=== PATIENT | male | born 1940 | race Caucasian/White ===

== ENCOUNTER 2018-10-19 10:57 | Day surgery (SDC) | payer MEDICARE ==
[2018-10-18 10:33] VITALS: BMI 35.1
[~2018-10-19 10:57] MED LIST: LACTATED RINGERS 1,000 ML IV SCH
[2018-10-19 11:33] VITALS: TEMP 98.2
[2018-10-19] MEDS ORDERED: LIDOCAINE 1% 20 ML VIAL (10MG/ML) FOR IV START INTRADERMA ONE (11:37)
[2018-10-19] MEDS ORDERED: PROPOFOL 10 MG/ML 20 ML VIAL IV ONE (11:38)
--- NOTE | 2018-10-19 12:00 | P.PCN ---
Date of Procedure: 10/19/18 Procedure(s) Performed: BRIEF HISTORY: Patient is a 78-year-old pleasant male, scheduled for an elective colonoscopy as a part of variation of prior history of colon polyps. Last coloscopy was 3 years ago and was noted to have adenoma. PROCEDURE PERFORMED: Colonoscopy with snare polypectomy. PREOPERATIVE DIAGNOSIS: History of colon polyps. IV sedation per Anesthesia. PROCEDURE: After informed consent was obtained, the patient, was brought into the endoscopy unit. IV sedation was administered by Anesthesia under continuous monitoring. Digital rectal examination was normal. Initially the Olympus CF-160 flexible video colonoscope was then inserted in the rectum, gradually advanced into the cecum without any difficulty. Careful examination was performed as the scope was gradually being withdrawn. Ileocecal valve and the appendiceal orifice were visualized and appeared normal. Prep was excellent. Mucosa of the cecum appeared normal. In the ascending colon there was a 1 cm broad-based polyp removed by snare polypectomy. Rest of the ascending colon, transverse colon, descending colon, sigmoid colon, and rectum appeared normal. Scattered left sided diverticulosis seen. Retroflexion was performed in the rectum and monitor hemorrhoids were seen. The patient tolerated the procedure well. IMPRESSION: 1 cm broad-based ascending colon polyp status post polypectomy Scattered sigmoid diverticulosis Small internal hemorrhoids RECOMMENDATIONS: Findings of this examination were discussed with the patient as well as a family. He was advised to follow with the biopsy results. If the biopsy shows adenoma, he can have a repeat colonoscopy in 3 yrs
[2018-10-19 12:18] VITALS: RESP 18
[2018-10-19 12:40] VITALS: BP 133/83; PULSE 68
== END 2018-10-19 12:58 | disposition home or self-care (01) ==
LOC: ORWHC2ENDO 10:57
PROVIDERS: ATTEND Internal Medicine Gastroenterology
DX: Z12.11 Encounter for screening for malignant neoplasm of colon (principal); K63.5 Polyp of colon; K57.30 Diverticulosis of large intestine without perforation or abscess without bleeding; K64.8 Other hemorrhoids; I10 Essential (primary) hypertension; E78.5 Hyperlipidemia, unspecified; N40.0 Benign prostatic hyperplasia without lower urinary tract symptoms; K21.9 Gastro-esophageal reflux disease without esophagitis; Z86.010 Personal history of colon polyps; Z87.448 Personal history of other diseases of urinary system; Z92.89 Personal history of other medical treatment; Z85.07 Personal history of malignant neoplasm of pancreas; Z79.82 Long term (current) use of aspirin; Z79.899 Other long term (current) drug therapy; Z88.4 Allergy status to anesthetic agent; Z91.040 Latex allergy status; Z88.5 Allergy status to narcotic agent; Z91.048 Other nonmedicinal substance allergy status
CPT/HCPCS: 88305; 45385; J2704